=== PATIENT | male | born 1955 | race Caucasian/White ===

== ENCOUNTER 2017-12-31 15:27 | Emergency (ER) | payer OTHER ==
[~2017-12-31] VITALS: Ht 182.9 cm; Wt 92.1 kg
[2017-12-31] MEDS ORDERED: DIPHTH,PERTUSS(ACELL),TET TOX 0.5 ML DISP.SYRIN. VAX IM ONE (16:30)
[2017-12-31] MEDS ORDERED: CEPH-264 PO (16:35)
[2017-12-31] MEDS ORDERED: HYDR-971 PO (16:35)
--- NOTE | 2017-12-31 16:35 | PHYS DOC ---
Adult General Chief Complaint Chief Complaint: LACERATION/AVULSION HPI HPI Patient is a 62-year-old male who presents after a chainsaw injury to the left index finger. He states he was cutting on a tree and accidentally hit his left index finger on the lateral aspect. He was wearing gloves at the time. He states the chainsaw was old and that his tetanus status is unknown. The updated today. There is no active bleeding upon arrival and the skin to the lateral aspect of the left index finger is missing. He is alert and oriented 4, calm, and appears to be in no distress. Review of Systems Review of Systems Constitutional: Denies fever or chills [] Eyes: Denies change in visual acuity, redness, or eye pain [] HENT: Denies nasal congestion or sore throat [] Respiratory: Denies cough or shortness of breath [] Cardiovascular: No additional information not addressed in HPI [] GI: Denies abdominal pain, nausea, vomiting, bloody stools or diarrhea [] : Denies dysuria or hematuria [] Musculoskeletal: Denies back pain or joint pain [] left index finger injury Integument: Denies rash or skin lesions [] Neurologic: Denies headache, focal weakness or sensory changes [] Endocrine: Denies polyuria or polydipsia [] All other systems were reviewed and found to be within normal limits, except as documented in this note. Current Medications Current Medications Current Medications Medications (Trade) Dose Ordered Sig/Mitch Start Time Stop Time Status Last Admin Dose Admin Diphtheria/ Tetanus/Acell Pertussis (Boostrix) 0.5 ml ONCE ONCE 12/31/17 16:30 12/31/17 16:31 Allergies Allergies Allergies Coded Allergies Type Severity Reaction Last Updated Verified No Known Drug Allergies 12/31/17 No Physical Exam Physical Exam Constitutional: Well developed, well nourished, no acute distress, non-toxic appearance. [] HENT: Normocephalic, atraumatic, bilateral external ears normal, oropharynx moist, no oral exudates, nose normal. [] Eyes: PERRLA, EOMI, conjunctiva normal, no discharge. [] Neck: Normal range of motion, no tenderness, supple, no stridor. [] Cardiovascular:Heart rate regular rhythm, no murmur [] Lungs & Thorax: Bilateral breath sounds clear to auscultation [] Abdomen: Bowel sounds normal, soft, no tenderness, no masses, no pulsatile masses. [] Skin: Warm, dry, no erythema, no rash. [] Back: No tenderness, no CVA tenderness. [] Extremities: No tenderness, no cyanosis, no clubbing, ROM intact, no edema. [] On the lateral aspect of the left index finger just distal to the DIP there is a 2 cm long a regular avulsion laceration, there is no skin to approximate as it is missing, there is no vascular or tendon injury seen, the patient is full range of motion, Refill distally is normal, vision appears comfortable Neurologic: Alert and oriented X 3, normal motor function, normal sensory function, no focal deficits noted. [] Psychologic: Affect normal, judgement normal, mood normal. [] EKG EKG [] Radiology/Procedures Radiology/Procedures [] Course & Med Decision Making Course & Med Decision Making Pertinent Labs and Imaging studies reviewed. (See chart for details) [] Dragon Disclaimer Dragon Disclaimer This electronic medical record was generated, in whole or in part, using a voice recognition dictation system. @1630 - explained to the patient that the skin is missing from the finger so that he'll be very difficult to suture this or a closed without pursing me strongly skin which would lead to a negative cosmetic outcome. As there is no bleeding and no vascular or tendon injury the patient is agreeable to closing the wound with rough approximation using Dermabond and Steri-Strips. This procedure worked well and the patient states he would like to go home at this time. Tetanus has been updated and he will go home with a prescription for Keflex. No foreign body visualized. Laceration Repair Lac Repair Indication: Left index finger avulsion laceration Procedure: The patient was placed in the appropriate position the area was cleansed, irrigated, and soaked. The laceration was closed with Dermabond and Steri-Strips to approximate the skin remaining. The wound area was then dressed and antibiotic ointment was applied. Total repaired wound length: 2 cm The patient tolerated the procedure well. Complications: none Departure Departure: Impression: Primary Impression: Laceration of finger of left hand Disposition: HOME, SELF-CARE Condition: STABLE Referrals: WADE PARK DO (PCP) Patient Instructions: Fingertip Laceration, Laceration Care, Adult Additional Instructions: Take the prescribed antibiotic daily. Take the pain medication as needed. Return to the ER for new or worsening symptoms such as redness, drainage from wound, or any other concerns. Follow-up with your doctor in the next 2-3 days for wound check. Keep the Steri-Strip some places they will follow up on her own. Continue to wear gloves when working. Scripts Hydrocodone Bit/Acetaminophen (NORCO 5-325 TABLET) 1 Each Tablet 1-2 TAB PO Q4-6HRS, #15 TAB Prov: YOUNG ELLIS DO 12/31/17 Cephalexin (KEFLEX) 500 Mg Capsule 1 CAP PO TID, #30 CAP Prov: YOUNG ELLIS DO 12/31/17 YOUNG ELLIS DO Dec 31, 2017 16:35
[2017-12-31 16:40] VITALS: BP 123/86
== END 2017-12-31 16:49 | disposition home or self-care (01) ==
LOC: ER 15:27
DX: S61.211A Laceration without foreign body of left index finger without damage to nail, initial encounter (principal); W27.8XXA Contact with other nonpowered hand tool, initial encounter; Y93.89 Activity, other specified; Y99.8 Other external cause status; Y92.89 Other specified places as the place of occurrence of the external cause
CPT/HCPCS: 12001; 90471; 90715; 99283-25